=== PATIENT | female | born 1990 | race Caucasian/White ===

== ENCOUNTER 2022-10-16 20:25 | Emergency (ER) | payer OTHER, SELFPAY ==
[2022-10-16 20:47] VITALS: BP 112/75; PULSE 65; RESP 16; TEMP 36.9; O2SAT 100
[2022-10-16 21:07] LABS: Basophils Absolute Auto 0.1 K/mm3 (0.0-0.1); Basophils Percent Auto 0.9 % (0.2-1.2); Eosinophils Absolute Auto 3.7 K/mm3 (0-0.3); Hematocrit 40.4 % (37.0-47.0); Hemoglobin 13.6 g/dL (12.0-15.0); Immature Granulocyte Absolute 0.04 K/mm3 (0.00-0.031); Immature Granulocyte Percent A 0.4 % (0-0.5); Lymphocytes Absolute Auto 2.03 K/mm3 (0.9-3.2); Lymphocytes Percent Auto 19.3 % (18.3-44.2); Mean Corpuscular HGB Conc 33.7 g/dl (32-36); Mean Corpuscular Hemoglobin 31.1 pg (26-34); Mean Corpuscular Volume 92.4 fl (80-100); Monocytes Absolute Auto 0.4 K/mm3 (0.1-0.6); Monocytes Percent Auto 4.2 % (2.6-8.5); Neutrophils Absolute Auto 4.2 K/mm3 (1.3-6.7); Neutrophils Percent Auto 40.2 % (45.5-73.1); Platelet Count Result 234 k/mm3 (150-375); Red Blood Count 4.37 M/mm3 (4.2-5.4); Red Cell Distribution Width 11.4 % (11.5-14.5); White Blood Count 10.5 K/mm3 (4.5-10.0)
[2022-10-16 21:19] LABS: Alanine Aminotransferase 21 U/L (6-35); Albumin Level 4.3 g/dL (3.5-5.1); Alkaline Phosphatase 43 U/L (38-126); Anion Gap 6 mmol/L (8-16); Aspartate Amino Transferase 22 U/L (14-36); Bilirubin,Total 1.2 mg/dL (0.2-1.3); Blood Urea Nitrogen 15 mg/dL (7-17); Carbon Dioxide 29 mmol/L (22-30); Chloride 102 mmol/L (98-107); Estimated CRCL calculation 95 ml/min; Estimated Glomerular Filt Rate > 60; Glucose 83 mg/dL (65-110); Lipase 275 U/L (23-300); Potassium 3.9 mmol/L (3.4-5.0); Sodium 137 mmol/L (137-145)
--- NOTE | 2022-10-16 23:49 | PC.NURSE ---
no answer at triage
== END 2022-10-16 23:59 | disposition left against medical advice (07) ==
PROVIDERS: Emergency Provider General Practice; PCP Family Medicine
DX: R10.9 Unspecified abdominal pain (principal)
CPT/HCPCS: 36415; 80053; 83690; 85025; 99199

== ENCOUNTER 2024-06-09 20:42 | Observation (INO) | payer OTHER, SELFPAY ==
[2024-06-09 20:29] VITALS: BMI 26.2
--- NOTE | 2024-06-09 20:29 | OBADM ---
This patient, Darci Nelson, admitted to the OB room Labor/Delivery/Recovery 109 for observation. Patient/family oriented to hospital policies and general routines including ID bracelet, bed and alarms, visiting hours, pain management, procedures, bathroom and other care routines, personal items, smoking policy, room service/diet, and visiting hours. Patient/Family are encouraged to report perceived risks to care and to ask questions if they do not understand what they are told or what they should do.
[2024-06-09 20:35] LABS: OBXCEM ROM Plus Negative (Negative)
== END 2024-06-09 20:45 | disposition home or self-care (01) ==
PROVIDERS: Admitting Provider Obstetrics & Gynecology; PCP Family Medicine; Visit Provider Obstetrics & Gynecology
DX: O47.1 False labor at or after 37 completed weeks of gestation (principal); Z3A.37 37 weeks gestation of pregnancy
CPT/HCPCS: 84112; G0378; G0379

== ENCOUNTER 2024-06-10 08:07 | Observation (INO) | payer OTHER, SELFPAY ==
[2024-06-10 08:30] VITALS: RESP 16; TEMP 37; BMI 26.0
--- NOTE | 2024-06-10 08:30 | OBADM ---
This patient, Darci Nelson, admitted to the OB room 106 for observation. Patient/family oriented to hospital policies and general routines including ID bracelet, bed and alarms, visiting hours, pain management, procedures, bathroom and other care routines, personal items, smoking policy, room service/diet, and visiting hours. Patient/Family are encouraged to report perceived risks to care and to ask questions if they do not understand what they are told or what they should do.
--- NOTE | 2024-06-10 10:59 | PM.OBTRLD ---
OB - Triage/Final Diagnosis Visit Information Date of evaluation: 06/10/24 Reason for evaluation: threatened labor Comments/Additional reasons for admission: I have assessed the risk for this patient, Darci Nelson, and determined that she would benefit from observation care.
== END 2024-06-10 10:41 | disposition home or self-care (01) ==
PROVIDERS: Admitting Provider Obstetrics & Gynecology; Visit Provider Obstetrics & Gynecology
DX: O47.9 False labor, unspecified (principal); Z3A.00 Weeks of gestation of pregnancy not specified
CPT/HCPCS: G0378; G0379

== ENCOUNTER 2024-06-13 01:35 | Observation (INO) | payer OTHER, SELFPAY ==
[2024-06-13] VITALS (8 sets, daily range): BP systolic 99–120; BP diastolic 63–70; PULSE 72–86
--- NOTE | 2024-06-13 02:18 | OBADM ---
This patient, Darci Nelson, admitted to the OB room Labor/Delivery/Recovery 104 for observation. Patient/family oriented to hospital policies and general routines including ID bracelet, bed and alarms, visiting hours, pain management, procedures, bathroom and other care routines, personal items, smoking policy, room service/diet, and visiting hours. Patient/Family are encouraged to report perceived risks to care and to ask questions if they do not understand what they are told or what they should do.
[2024-06-13 02:25] LABS: Add Urine Microscopic? NO; Appearance Urine Clear (Clear); Bilirubin Urine Negative (Negative); Blood Urine Negative (Negative); Color Urine Yellow (Yellow); Glucose Urine UA Negative (Negative); Ketones Urine Negative (Negative); Leukocyte Esterase Ur Negative LEU/UL (Negative); Nitrate Urine Negative (Negative); Protein Urine Negative (Negative); Specific Grav Ur 1.009 (1.001-1.035); Urobilinogen Urine 0.2 mg/dL (<2.0); pH Urine 5.5 (5.0-9.0)
--- NOTE | 2024-06-13 04:24 | PC.NURSE ---
Pt discharged home undelivered in stable condition per order from Dr. Su. Discharge instructions provided and reviewed. All questions and concerns answered. PT ambulated out of department with all belongings.
--- NOTE | 2024-07-16 11:04 | PM.OBTRLD ---
OB - Triage/Final Diagnosis Visit Information Comments/Additional reasons for admission: I have assessed the risk for this patient, Darci Nelson, and determined that she would benefit from observation care. Evaluation Laboratory results: Laboratory Tests 06/13/24 02:09 Urine Color Yellow Urine Appearance Clear Urine pH 5.5 Ur Specific [place] 1.009 Urine Protein Negative Urine Glucose (UA) Negative Urine Ketones Negative Ur Blood (Man) Negative Urine Nitrate Negative Urine Bilirubin Negative Urine Urobilinogen 0.2 Leukocyte Esterase Rfl Negative Final Diagnosis (1) False labor: Code(s): O47.9 - False labor, unspecified Status: Acute
== END 2024-06-13 04:24 | disposition home or self-care (01) ==
PROVIDERS: Admitting Provider Obstetrics & Gynecology; Visit Provider Obstetrics & Gynecology
DX: O47.1 False labor at or after 37 completed weeks of gestation (principal); Z3A.38 38 weeks gestation of pregnancy
CPT/HCPCS: 81003; G0378; G0379

== ENCOUNTER 2024-06-17 04:58 | Inpatient (IN) | payer OTHER, SELFPAY ==
[2024-06-17] VITALS (220 sets, daily range): BP systolic 77–114; BP diastolic 39–81; PULSE 53–108; RESP 16–18; TEMP 36.1–37.2; O2SAT 78–100; BMI 26.9
--- NOTE | 2024-06-17 05:31 | LDADM ---
This patient, Darci Nelson, was admitted to Labor/Delivery/Recovery 103 on 06/17/24 at 04:58. Plans for labor, pain management and were discussed with patient. Patient/family oriented to hospital policies and general routines including ID bracelet, bed and alarms, visiting hours, pain management, procedures, bathroom and other care routines, personal items, smoking policy, room service/diet and guest tray routines, infant security routines, and visiting hours. Patient/Family are encouraged to report perceived risks to care and to ask questions if they do not understand what they are told or what they should do. See OBIX for further documentation.
[2024-06-17 05:45] LABS: Basophils Absolute Auto 0.2 K/mm3 (0.0-0.1); Basophils Percent Auto 1.2 % (0.2-1.2); Eosinophils Absolute Auto 0.1 K/mm3 (0-0.3); Eosinophils Percent Auto 0.6 % (0-4.4); Hematocrit 34.4 % (37.0-47.0); Hemoglobin 11.2 g/dL (12.0-15.0); Immature Granulocyte Absolute 1.49 K/mm3 (0.00-0.031); Immature Granulocyte Percent A 9.2 % (0-0.5); Lymphocytes Percent Auto 10.5 % (18.3-44.2); Mean Corpuscular HGB Conc 32.6 g/dl (32-36); Mean Corpuscular Hemoglobin 29.2 pg (26-34); Mean Corpuscular Volume 89.6 fl (80-100); Mean Platelet Volume 10.1 fl (7.4-10.4); Monocytes Absolute Auto 1.3 K/mm3 (0.1-0.6); Monocytes Percent Auto 8.2 % (2.6-8.5); Neutrophils Absolute Auto 11.3 K/mm3 (1.3-6.7); Neutrophils Percent Auto 70.3 % (45.5-73.1); Platelet Count Result 200 k/mm3 (150-375); Red Blood Count 3.84 M/mm3 (4.2-5.4); Red Cell Distribution Width 13.4 % (11.5-14.5); White Blood Count 16.1 K/mm3 (4.5-10.0)
[2024-06-17] MEDS: OXYTOCIN 30 UNITS/NS 500 ML 30 UNITS/500 ML BAG IV CONT (06:06)
[2024-06-17] MEDS: LACTATED RINGERS 1,000 ML 125 ML IV CONT ×3 (06:06→16:39)
[2024-06-17 06:37] LABS: HIV 1/2 Ab P24 Ag Result Negative (Negative)
--- NOTE | 2024-06-17 06:54 | PM.IMHP ---
H&P: HPI History of Present Illness Date/Time: 06/17/24 06:54 Chief Complaint: Induction at term Narrative: this is a 34-year-old 2 para 1 whose last menstrual period was 09/24/2023, EDC is 07/04/2024, was confirmed by 11 week ultrasound presents at 39 weeks gestation for induction of labor. has been uncomplicated. 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 She is negative for group B strep Review of Systems Review of Systems: All systems reviewed & are unremarkable except as noted in HPI and below PMFSH Family History Family History Other No pertinent family history Social History Social History Smoking status: Never smoker Second hand tobacco smoke exposure: No Alcohol intake: current Substance use: never Do You Feel Safe in your Home?: Yes Lack of Transportation: No Lack of Food: Never True Current Housing: I Have Housing Concerned About Future Housing: No Difficulty Paying Gas/Electric Bills: No Difficulty Paying for Meds: No Currently Unemployed: No Education: Trade/Vocational Certificate Difficulty w/ Childcare or Family Care: No Spiritual care concerns: No Meds Home Medications and Allergies Home Medications ?Medication ?Instructions ?Recorded ?Confirmed ?Type bupropion HCl 150 mg 24 hr tablet, 150 mg PO DAILY 06/10/24 06/17/24 History extended release omeprazole 40 mg capsule,delayed 40 mg PO DAILY 06/10/24 06/17/24 History release vit no.95-ferrous 1 tablet PO DAILY 06/10/24 06/17/24 History fumarate 28 mg-folic acid 800 mcg tablet () clindamycin 1 %-benzoyl peroxide 5 topical 06/17/24 History % topical gel with pump ondansetron HCl 4 mg tablet mg 06/17/24 History Allergies Allergy/AdvReac Type Severity Reaction Status Date / Time No Known Allergies Allergy Verified 06/17/24 05:47 Vital Signs Vital Signs - 24 hr 06/17/24 05:13 06/17/24 05:31 06/17/24 06:30 Temperature 97 F L Pulse Rate 77 69 Respiratory Rate Blood Pressure 103/64 107/63 Oxygen Delivery Room Air 06/17/24 06:48 Temperature 99 F Pulse Rate Respiratory Rate 16 Blood Pressure Oxygen Delivery Exam Const: General: cooperative, healthy appearing and comfortable Nutritional Appearance: average body habitus Orientation/consciousness: oriented to person, oriented to place and oriented to time Resp: Effort & Inspection: normal respiratory effort Cardio: Rate: regular rate Rhythm: regular rhythm Heart sounds: S1 normal heart sound present and S2 normal heart sound present GI: Inspection: normal to inspection ( gravid soft uterus) : Speculum Exam - Cervix: normal appearance of the cervix ( cervix 2/75/1. AROM clear. FHT is reassuring) H&P: Results Labs Labs: Short CBC 06/17/24 Range/Units 05:35 WBC 16.1 H (4.5-10.0) K/mm3 Hgb 11.2 L (12.0-15.0) g/dL Hct 34.4 L (37.0-47.0) % Plt Count 200 (150-375) k/mm3 Assessment and Plan Assessment and plan (1) Term : Code(s): Z34.90 - Encounter for supervision of normal , unspecified, unspecified trimester Status: Acute Plan proceed with medical elt induction of labor. Spontaneous vaginal delivery is expected. She is an epidural candidat
[2024-06-17 07:12] LABS: Rapid Plasma Reagin Non-Reactive (NonReactive)
--- NOTE | 2024-06-17 16:17 | PM.OBPNLAB ---
Pain Control Date/time seen: 06/17/24 16:17 Pain control: tolerating well and epidural Pelvic Exam Dilation (cm): 4
--- NOTE | 2024-06-17 19:26 | PM.OBPNLAB ---
Pain Control Date/time seen: 06/17/24 19:26 Pain control: tolerating well and epidural Pelvic Exam Dilation (cm): 4 Effacement (%): 90 station: -1 Amniotic membrane status: Leaking
[2024-06-18] VITALS (19 sets, daily range): BP systolic 86–123; BP diastolic 42–105; PULSE 69–111; RESP 14–16; TEMP 36.6–36.9; O2SAT 70–100
--- NOTE | 2024-06-18 00:50 | PM.OBPRVD ---
OB - Vaginal Delivery Note Procedure Delivery date: 06/18/24 Events: Elective Induction of Labor Induction method: AROM Delivery augmentation: Pitocin Delivery monitor: External FHT, External Uterine and Internal Uterine Route of delivery: Episiotomy description: None Laceration Description: None Quantitative Blood Loss (ml): 62 Anesthesia type: Epidural Disposition: Floor Complications: No immediate complications Narrative: Patient was admitted for induction of labor on 06/17/2024 she underwent spontaneous vaginal delivery on 06/18/2024 at 12:37 a.m.. When she was complete she pushed delivered head spontaneously in the SACHIN position nuchal cord checked noted to be loose x1 relieved around the occiput anterior posterior shoulder delivered spontaneously. Cord clamped x2 and cut. given Apgars of 7 [id number]. Cord blood was drawn. Placenta delivered intact spontaneously. Twenty of Pitocin placed in the IV to help firm the uterus. After spectral sidewalls no lacerations. She was seen. Blood loss estimated 62cc. All sponge, needle, instrument counts were correct. There were no immediate complications [place] Baby Date of : 06/18/24 Time of : 00:37 Gestational Age by Date: 39 Infant gender: Male Weight (pounds): 8 Weight (ounces): 7 presentation: vertex position: Right Occiput Anterior Placenta delivery description: Spontaneous Cord Vessel Description: 3 Vessels, Nuchal Cord, Loose and Reduced score one minute: 7
--- NOTE | 2024-06-18 00:53 | PM.DS ---
DS: Admitting Diagnosis Discharge Date 06/19/2020 Admitting Diagnosis term DS: Discharge Diagnosis Discharge Diagnosis (1) Term : Code(s): Z34.90 - Encounter for supervision of normal , unspecified, unspecified trimester Status: Acute DS: Summary Hospital Course Reason for hospitalization: patient was admitted for induction of labor in the early a.m. of 06/17/2024 and underwent spontaneous vaginal delivery of the early a.m. of 06/18/2024 Hospital Course: patient's hospital course unremarkable. She remained afebrile. She was up, voiding without difficulty, eating regular diet, ambulating, and generally without complaints. Time Spent with Patient Time attestation: Total time spent providing and/or coordinating discharge services: Exam Const: General: cooperative, healthy appearing and comfortable Nutritional Appearance: average body habitus Orientation/consciousness: oriented to person, oriented to place and oriented to time Resp: Effort & Inspection: normal respiratory effort Cardio: Rate: regular rate Rhythm: regular rhythm Heart sounds: S1 normal heart sound present and S2 normal heart sound present GI: Inspection: normal to inspection ( Fundus firm below the umbilicus) DS: Data Data Completed and Pending Labs on day of discharge: Labs from last 24 hours 06/17/24 05:35 WBC 16.1 H RBC 3.84 L Hgb 11.2 L Hct 34.4 L MCV 89.6 MCH 29.2 MCHC 32.6 RDW 13.4 Plt Count 200 MPV 10.1 Immature Gran % (Auto) 9.2 H Neut % (Auto) 70.3 Lymph % (Auto) 10.5 L Quay % (Auto) 8.2 Eos % (Auto) 0.6 Baso % (Auto) 1.2 Lymph # (Auto) 1.70 Quay # (Auto) 1.3 H Eos # (Auto) 0.1 Baso # (Auto) 0.2 H Abs Immat Gran (auto) 1.49 H Absolute Neuts (auto) 11.3 H Absolute Nucleated RBC 0.000 Nucleated RBC % 0.0 RPR Non-reactive HIV 1&2 Ab/P24 Ag 4thGn Negative Blood Type O Positive Antibody Screen Positive Antibody Identification Anti-E Antigen Identification E Antigen - NEGATIVE FAITH, IgG Interpret Neg FAITH, Poly Interpret TNP FAITH, Complement Interp Negative Enhanced Crossmatch See Detail Discharge Plan Discharge Attending physician on discharge: Andrew Gutierrezarging Clinician: Andrew Gutierrez Patient Disposition: Home, Self-Care Activity: may shower, no straining and pelvic rest Diet: heart healthy Wound Care Instructions: follow printed instructions Patient Instructions: Antibiotic Form Patient Language: Upper Sorbian Stand Alone Forms: General Discharge Information Follow-up/Referrals: Andrew Gutierrez MD [Physician] - Discharge Medications: Continued ondansetron HCl 4 mg tablet clindamycin-benzoyl peroxide 1-5 % gel with pump TOPICAL bupropion HCl 150 mg tablet extended release 24 hr 150 mg PO DAILY PNV cmb#95-ferrous fumarate-FA [] 28 mg iron- 800 mcg Tablet 1 tablet PO DAILY omeprazole 40 mg Capsule,Delayed Release(Dr/Ec) 40 mg PO DAILY Date of admission: 06/17/24 04:58 Primary Care Provider: UNKNOWN,DOCTOR Admitting Provider: Andrew Gutierrez Attending physician on admission: Andrew Gutierrez Condition: Stable
[2024-06-18] MEDS: OXYTOCIN 30 UNITS/NS 500 ML 30 UNITS/500 ML BAG 125 UNITS IV CONT (00:58)
[2024-06-18] MEDS: ACETAMINOPHEN 325 MG TABLET 650 MG PO ×3 (02:06→17:40)
[2024-06-18] MEDS: WITCH HAZEL 40 PADS 1 PAD TOPICAL (02:54)
[2024-06-18] MEDS: BENZOCAINE 20% AER SPR (*SP) 56 GM CAN 1 SPRAY TOPICAL (02:54)
--- NOTE | 2024-06-18 03:00 | OBPPTRN ---
Patient transferred to post room #291 via wheelchair. Support person present. Oriented to unit, room, information board, rooming in, admission packet and security measures. Patient verbalizes understanding.
[2024-06-18] MEDS: DOCUSATE SODIUM 100 MG CAPSULE PO ×2 (07:35→17:40)
[2024-06-18] MEDS: IBUPROFEN 600 MG TABLET PO ×3 (07:36→20:14)
[2024-06-18] MEDS: MULTIVIT/MIN/PREN/FOL AC/IRON TABLET 1 TAB PO (07:36)
[2024-06-18] MEDS: buPROPion HCL XL (24 HR) 150 MG TABCR PO (07:36)
--- NOTE | 2024-06-18 09:22 | PC.NURSE ---
Introductions were made, then consulted with patient to assess needs related to . Mother led the conversation with her?plans to feed?her and the?experience so far. Mother would like to exclusively breastfeed, she was given a nipple shield through the night and was used due to baby not being able to maintain latch. Mother had used the shield x4 so RN will set mother up with a breast pump, mother prefers to use the hospital pump. Instructions given on cleaning, care, usage, that there should be no pain, pumping schedule for milk production, collection, and storage of human milk. Patient was assessed for correct placement, flange size (both nipples measured 20mm and she needs the size 27 flange, as the size 24 was rubbing her nipples), to pump for comfort and nipple stretching/stimulation for adequate milk production every 3 hours (8 times in 24 hours) 1-2 times at night. Parents are encouraged to record the pumping schedule on the feeding sheet.?Mother voiced understanding of the education shared along with mom/baby guide and the pump measurement, flange fit handout for additional resource information. RN encouraged understanding of the benefits of skin to skin (demonstrating unwrapping infant and placing upright on her chest), stimulating with massage touch, changing positions to encourage wakefulness, how to watch for early feeding cues, responsive feeding, feeding on demand (aiming for 8-12 times in 24 hours, about every 2-3 hours), milk production, building/maintaining a milk supply, duration of feeding, signs of adequate intake/output and how to record on the feeding sheet. Mother works well with her with encouragement and education. Reviewed positioning and ear, shoulder, hip alignment, supporting the breast to facilitate a deep latch, asymmetrical latch (off-center), leading with the chin with a big, open, wide gape and body close to mother. had latched optimally to the [right] breast in [cradle] position per mother. Education given to the mother of how to visualize the suckling (with good rocking jaw motion), swallows (dropping of the lower jaw) and how to listen for drinking at the breast (the ka sound). was [able] to maintain latch using the nipple shield without pain to mother protecting the nipple with optimal positioning and latching. Reviewed comfort measures of healing with a warm, wet washcloth to rinse breast, then leave open to air-dry, good handwashing when or touching the breast/nipples to prevent infection. Mother voiced understanding of skin to skin, stimulating with massage touch, responsive feedings, hand expressed colostrum, talking to infant to encourage if it has been 2 -2.5 hours since the start of the last , to call if infant does not latch, or if there is discomfort with . Resources used for education were facilitated with the [visual educational handouts/ tool/mom and baby guide/ folder], Inpatient/outpatient resources provided with business card, feeding sheet, name written on the communication board, and the mom/baby guide. Parents voiced understanding of information, demonstrated learning and will call if there is a request for assistance. RN also reviewed good handwashing, cleaning the nipple shield and the appropriate way to apply and use as a tool. Discussed with mom the nipple shield precautions, possible complications associated with the risks and benefits. Reviewed practicing with a nipple shield, then without and how to protect the milk supply and production. Mom and baby guide referred to as a resource for outpatient services, community resources and when to call a provider. Mom voiced understanding of the importance of hand expression, nipple stimulation and was ok with the initiating of the pumping schedule since the infant had continued to nurse with the shield. Reported to the Primary RN.
--- NOTE | 2024-06-18 16:08 | PC.NURSE ---
1300. Mom independently latching with nipple shield. Mom reports she is using shield bc infant has latch difficulties. Mom called to have show her how to listen for swallows . Infant stopped suckling when entered the room and would not continue. Mom encouraged to call again next time was feeding to try again. Mom verbalized understanding.
--- NOTE | 2024-06-18 18:03 | PC.NURSE ---
1750. Nurse called to assist mom with feeding at this time. Mom reports is sleepy and not wanting to latch and eat. Infant was circumcised at 1600 and is sleeping in moms arms. We undressed and placed him in s2s. Infant was properly positioned in cross cradle and multiple attempts made to latch. Infant sleepy, reluctant to latch. We discussed having mom pump to collect some EBM to feed to infant. Mom requests formula at this time to feed infant and will pump after is fed. Mom requested enfamil. Assisted mom with bottle feeding infant, infant was sleepy and reluctant to suck on the bottle. Infants last feeding was 1300 for 5 min, with an attempt at 1600 for 40 min. was able to take 5 ml from the nurse at this time. Mom fed infant another 10ml, and reports she will pump for 15 min. Reported to primary RN.
[2024-06-19] MEDS: IBUPROFEN 600 MG TABLET PO (01:45)
[2024-06-19] MEDS: ACETAMINOPHEN 325 MG TABLET 650 MG PO ×2 (01:45→08:19)
[2024-06-19 04:41] LABS: Hematocrit 31.6 % (37.0-47.0); Hemoglobin 9.9 g/dL (12.0-15.0)
--- NOTE | 2024-06-19 05:00 | PC.NURSE ---
0400-This RN requested assistance from security to enter pts room with FOB, as reported by surgical instrument technician he was verbally aggressive with her as she was attempting blood draw on pt. FOB standing behind her, stating that we are in the room every 45 minutes and that he is sick of the interruptions which this RN had addressed with FOB and pt at 0200, apologizing for the two hour checks, explaining the rationale behind them. This RN explained to FOB and pt that FOB would not be allowed to be aggressive with staff and that he needing to go out into the arenas with security while this RN performed lab draw. FOB stated you all are ridiculous! and proceeded to go into hallway with security. Pt began crying, stating that she was sorry and the he is really a nice rufina. I did ask pt if she felt safe with FOB and she stated that she did. FOB then returned to room without incident.
--- NOTE | 2024-06-19 07:51 | P.PNOB_ITS ---
OB - PN: Subj Subjective Date/time seen: 06/19/24 07:51 Patient comments: no complaints, pain well controlled and tolerating diet OB - PN: Obj Data Labs 06/19/24 04:30 Labs: Laboratory Results - last 24 hr 06/19/24 04:30 Hgb 9.9 L Hct 31.6 L OB - PN A/P Assessment and Plan (1) Term : Code(s): Z34.90 - Encounter for supervision of normal , unspecified, unspecified trimester Status: Acute Plan Home today follow-up 6 weeks Time Spent With Patient Time: Total time spent is greater than 50% in coordination of care (as documented) at patient's floor/unit and/or counseling patient: Review of Systems 2 Review of Systems: All systems reviewed & are unremarkable except as noted in HPI and below Exam 2 Const: General: cooperative, healthy appearing and comfortable Nutritional Appearance: average body habitus Orientation/consciousness: oriented to person, oriented to place and oriented to time Resp: Effort & Inspection: normal respiratory effort Cardio: Rate: regular rate Rhythm: regular rhythm Heart sounds: S1 normal heart sound present and S2 normal heart sound present GI: Inspection: normal to inspection
[2024-06-19 08:00] VITALS: BP 100/65; PULSE 70; RESP 16; TEMP 36.6; O2SAT 99
[2024-06-19] MEDS: MULTIVIT/MIN/PREN/FOL AC/IRON TABLET 1 TAB PO (08:19)
[2024-06-19] MEDS: DOCUSATE SODIUM 100 MG CAPSULE PO (08:19)
[2024-06-19] MEDS: POLYSACCHARIDE IRON COMPLEX 150 MG CAPSULE PO (08:19)
[2024-06-19] MEDS: buPROPion HCL XL (24 HR) 150 MG TABCR PO (08:19)
--- NOTE | 2024-06-19 08:20 | PC.NURSE ---
Per the primary RN, mom chooses to exclusively formula feed. She does not wish to pump or give breastmilk at this time.
[2024-06-19] MEDS: INFLUENZA TRIVALENT VACCINE 45 MCG/0.5 ML SYRINGE IM (08:41)
== END 2024-06-19 09:20 | disposition home or self-care (01) | DRG 807 ==
LOC: ANHLDR 06-18 00:57 → ANHOB2 06-18 04:06
PROVIDERS: Admitting Provider Obstetrics & Gynecology; Visit Provider Obstetrics & Gynecology
DX: O69.81X0 Labor and delivery complicated by cord around neck, without compression, not applicable or unspecified (principal); Z37.0 Single live birth; Z3A.39 39 weeks gestation of pregnancy; Z23 Encounter for immunization
CPT/HCPCS: 36415; 85014; 85018; 85025; 86592; 86703; 86850; 86880; 86900; 86901; 86902; 86922; 90471; 90656; A9270; G0008; G0432; J2590; J2795; J7120

== ENCOUNTER 2024-10-16 14:49 | Emergency (ER) | payer OTHER, SELFPAY ==
--- OUTSIDE RECORDS SUMMARY | 2024-10-16 14:52 | XMS_ITS | Clinical Summary ---
Author Organization [facility] Address [facility] [place] [address] Care Team Providers Care Labor Mediator Name Role Phone Unavailable Primary Care Provider Unavailabl e Encounters Date Type Department Care Team Description 08/30/2024 7:29 AM INSTITUTIONAL RESEARCH COORDINATOR - 08/30/2024 11:59 PM INSTITUTIONAL RESEARCH COORDINATOR Hospital Encounter [facility] [place] [address] [place] [address] Candice Watson MD Discharge Disposition: Home or Self Care (Routine Discharge) from Last 3 Months Social History Tobacco Use Types Packs/Day Years Used Date Smoking Tobacco: Never Assessed Comments Unknown Sex and Gender Information Value Date Recorded Sex Assigned at Not on file Legal Sex Female 7:28 AM INSTITUTIONAL RESEARCH COORDINATOR Gender Identity Not on file Sexual Orientation Not on file Plan of Treatment Health Maintenance Due Date Last Done Comments Cervical Cancer Screening Pa p Smear (Age 30 to 64) Every 3 Years 1989 Annual Physical 1992 Hepatitis C 2007 DTaP, Tdap and Td Vaccines ( 1 - Tdap) 2008 Hepatitis B Vaccines (1 of 3 - 19+ 3-dose series) 2008 Cervical Cancer Screening Pa p with HPV Testing (Age 30 to 64) Every 5 Years 2019 Cervical Cancer Screening with HPV 2019 COVID-19 Vaccine ( - 2023-2 5 season) 2024 HPV Vaccines Aged Out No longer eligi ble based on patient's age to complete this topic Meningococcal B Vaccine Aged Out No l onger eligible based on patient's age to complete this topic Meningococcal Vaccine Aged Out No nilo jordan eligible based on patient's age to complete this topic Pneumococcal Vaccine: Pediat rics (0 to 5 Years) and At-Risk Patients (6 to 64 Years) Aged Out No longer eligible b ased on patient's age to complete this topic RSV Immunizations Under 20 Months Aged Out No longer eligible based on patient's age to complete this topic Procedures Procedure Name Priority Date/Time Associated Diagnosis Comments PATHOLOGY Routine 08/30/2024 12:00 AM INSTITUTIONAL RESEARCH COORDINATOR from Last 3 Months Results * Pathology (08/30/2024 12:00 AM INSTITUTIONAL RESEARCH COORDINATOR) PATHOLOGY [facility] Department of Laboratory Medicine [address] [place] [address] , extension [phone] Pathology Report Surgical Pathology Report Name: DARCI DEL REAL Specimen #: [id number] Age: 10 1990 (Age: 34) Location: [facility] Sex: F Procedure Date: 08/30/2024 Hospital #: [id number] Date Received: 08/31/2024 Date Reported: 09/01/2024 Provider: CANDICE WATSON Source: Soft tissue, left lower back Clinical History: Left lower back fatty mass. FINAL DIAGNOSIS: Soft tissue, left lower back mass, excision: -Mature fibroadipose tissue, compatible with lipoma. Gross Description: Received in formalin, labeled with a patient label and as left lower back mass are multiple disrupted pieces of soft yellow tissue, 8.5 x 7.5 x 1.0 cm in aggregate. Sections reveal pale yellow cut surfaces. Ssn/Ssbn Assistant Navigator tissue is submitted in cassette 1. Gross examination (when applicable), interpretation, and sign out were performed at [facility], [address] [place] [address]. Electronically Signed Out ADEBAYO DUMONT MD [facility] 08/30/2024 08/31/2024 11: 59 AM INSTITUTIONAL RESEARCH COORDINATOR Comment:Soft tissue, left lo wer back us Candice Watson MD PATHOLOGY/CYTOLOGY OR DERABLES Final Result [facility] [address] [place] [id number], [id number] from Last 3 Months
--- OUTSIDE RECORDS SUMMARY | 2024-10-16 14:52 | XMS_ITS | Data Portability ---
Author Organization [facility] [employer], Main Office Address [address] [place] [address] Assessment Encounter Date Assessment Date Assessment LastModified by Organization Details LastModified Time 08/26/2024 08/26/2024 Right lower back mass. Most likely benign fatty mass. Patient would like to have removed. Will schedule for excision under anesthesia. Risks and benefits were discussed risks include bleeding, infection and numbness [email or web address] Not available 08/26/2024 12:39:42 Plan of Treatment Reminders Order Date Submit Date Provider Last Modified By Organization Details Last Modified Time Details Appointments Follow Up 15 2024 11:15A NEEMA Daniels Not available Not available Not available Lab urinalysi s, dipstick 2022 023 [facility] [address], [place], [address], 10/24/2022 11:52:00 Referral general surgeon referral - lipoma left of lumbar spine . Please eval and treat. Please call patient to schedule an appointme nt. Thank you 2024 025 ANA Mercado MD, [address] [facility], [address], [place], [address], 10/16/2024 04:07:32 gynecolog ist referral 2022 023 [email or web address] Keysha Lindquist MD, [address] [facility], [address], [place], [address], 09/19/2023 09:26:32 Procedures None recorded. Surgeries None recorded. Imaging US, pelvis, transabdo atif + transvagi nal - *Please call patient to schedule* 2022 023 [email or web address] [id number] [facility] ([facility] [address] [place], [address], 11/25/2022 12:12:37 Medication Orders bupropion HCl XL 300 mg 24 hr tablet, extended release 2024 025 [id number], [address] [place], [place], [id number], 08/17/2024 12:14:11 dextroamp hetamine- amphetami ne 15 mg tablet 2022 023 [facility][id number], [address], [place], [id number], 06/16/2023 16:15:39 Patient TargetsNo targets recorded. Patient Instructions Encounter Date Encounter Id Patient Instructions Last Modified By Organization Details Last Modified Time 04/06/2024 [id number] I offered to prescribe vitamins , sh is fine with the otc ones for now [email or web address] Not available 04/06/2024 10:36:03 Reason for Referral [employer] Referral for Sc reening for malignant neoplasm of cervix Referring Physician: [facility], Encounter Date: 06/16/2023 General Surgeon Referral for Lipoma lipoma left of lumbar spine . Please eval and treat. Please call patient to schedule an appointment. Thank you Referring Physician: [facility], Encounter Date: 08/17/2024 Results Created Date Observation Date Name Description Value Unit Range Abnormal Flag Note LastModifiedBy Organization Detail LastModifiedTime 10/25/19 23 10/24/2022 urina lysis , dipst ick Leukocytes (reference range: negative lexi/ l) Negati ve Not Available s_[address], [place], [address], 10/24/2022 11:49:22 10/25/19 23 10/24/2022 urina lysis , dipst ick Nitrite (reference rage: negative mg/dl) negati ve Not Available [address], [place], [address], 10/24/2022 11:49:22 10/25/19 23 10/24/2022 urina lysis , dipst ick Urobilinogen (reference range: 0.2-1 mg/dl) 0.2 Not Available [address], [place], [address], 10/24/2022 11:49:22 10/25/19 23 10/24/2022 urina lysis , dipst ick Protein (reference range: negative mg/dl) Negati ve Not Available [address], [place], [address], 10/24/2022 11:49:22 10/25/19 23 10/24/2022 urina lysis , dipst ick pH (reference range: 5-7) 7.0 Not Available [address], [place], [address], 10/24/2022 11:49:22 10/25/19 23 10/24/2022 urina lysis , dipst ick Blood (reference range: negative Timo/ l) Negati ve Not Available [address], [place], [address], 10/24/2022 11:49:22 10/25/19 23 10/24/2022 urina lysis , dipst ick Specific [place] (reference range: 1.005-1.030) 1.015 Not Available [address], [place], [address], 10/24/2022 11:49:22 10/25/19 23 10/24/2022 urina lysis , dipst ick Ketone (reference range: negative mg/dl) Negati ve Not Available [address], [place], [address], 10/24/2022 11:49:22 10/25/19 23 10/24/2022 urina lysis , dipst ick Bilirubin (reference range: negative mg/dl) Negati ve Not Available [address], [place], [address], 10/24/2022 11:49:22 10/25/19 23 10/24/2022 urina lysis , dipst ick Glucose (reference range: negative mg/dl) Negati ve Not Available [address], [place], [address], 10/24/2022 11:49:22 10/25/19 23 10/24/2022 urina lysis , dipst ick Appearance Clear Not Available [address], [place], [address], 10/24/2022 11:49:22 10/25/19 23 10/24/2022 urina lysis , dipst ick Color Yellow Not Available [address], [place], [address], 10/24/2022 11:49:22 08/30/19 25 08/30/2024 URINE HCG QUAL/ POINT OF CARE point of care urine preg negati ve negati ve Not Available [facility] (Lab) [address] [place], [address], 08/30/2024 07:09:39 Result Notes None recorded. Problems Name Problem SNOMED Code Status Onset Date Resolution Date Notes Provider Name and Address Organization Details Recorded Time Acne 89972704 Active Not Available [facility] 3 08:48:32 Undifferenti ated attention deficit disorder 40953790 Active Not Available [facility] 3 08:48:32 Tendinitis of wrist 755979714 Active Not Available [facility] 3 08:48:32 Adult attention deficit hyperactivit y disorder 185517648 Active Not Available [facility] 3 08:48:32 Urinary tract infectious disease 02106872 Active Not Available [facility] 3 08:48:32 Attention deficit hyperactivit y disorder, predominantl y inattentive type 94145963 Active 2022 Mro Christian MD [address], [address], [place], [address] , [employer] [facility] [employer] 3 12:00:15 Pain in pelvis 60389089 Active 2022 Mor Christian MD [address], [address], [place], [address] , [place] [facility] [employer] [facility] 3 11:48:58 Viral enteritis of intestine 43653678 Active 2022 Mor Christian MD [address], [address], [place], [address] , [employer] [facility] 3 13:21:44 Mixed anxiety and depressive disorder 012550914 Active 2022 Mor Christian MD [address], [address], [place], [address] , [employer] [facility] 3 08:46:03 Bronchitis 53133129 Active 2022 Mor Christian MD [address], [address], [place], [address] , [employer] [facility] 3 16:27:24 Screening for malignant neoplasm of cervix Active 2022 NEEMA Yanes [address], [address], [place], [address] , [email or web address] [facility] [employer] 3 16:16:16 Adult health examination Active 2023 NEEMA Yanes [address], [address], [place], [address] , [facility] [employer] [facility] [employer] 4 10:34:13 Dysuria 15841611 Active 2023 NEEMA Yanes [address], [address], [place], [address] , [email or web address] [facility] [employer] [facility] 4 16:16:48 Lipoma 75429513 Active 2024 left of lumbar spine NEEMA Yanes [address], [address], [place], [address] , [email or web address] [facility] [employer] [facility] 5 12:18:33 Lipoma of back 907925965 Active 2024 Romulo fletcher MD [address], [address], [place], [address] , [email or web address] [facility] [employer] 5 14:39:28 Problem Notes None recorded. Medical Equipment None Reported. Allergies No known drug allergies Medications Name Sig Start Date Stop Date Status Note LastModified by Organization Details LastModified Time cyclobenzap rine 10 mg tablet 08/11 completed Not Available Not Available Not Available amoxicillin 500 mg capsule TK ONE C PO TID TAT 09/05 completed Not Available Not Available Not Available prednisone 10 mg tablet 4 tabs daily x 3 days 3 tabs daily x 3 days 2 tabs daily x 3 days 1 tab daily x 3 days then stop. active Not Available Not Available No t Available azithromyci n 250 mg tablet TAKE 2 TABLETS BY MOUTH FOR 1 DAY THEN TAKE 1 TABLET BY MOUTH DAILY FOR 4 DAYS 04/06 completed Not Available Not Available Not Available fluconazole 150 mg tablet TK 1 T PO FOR 1 DAY active Not Available Not Available No t Available hydrocodone 5 mg-acetamin ophen 325 mg tablet TK 1 OR 2 TS PO Q 6 H PRN P 09/05 completed Not Available Not Available Not Available ondansetron HCl 4 mg tablet TAKE 1 TABLET BY MOUTH EVERY 6 HOURS NEEDED FOR NAUSEA active Not Available Not Available No t Available spironolact one 100 mg tablet TAKE 1 TABLET BY MOUTH EVERY DAY FOR ACNE active on hold for now Not Available Not Available Not Available penicillin V potassium 500 mg tablet active Not Available Not Available Not Available acetaminoph en 300 mg-codeine 30 mg tablet TK 1 T PO Q 4-6 H PRN P 04/26 completed Not Available Not Available Not Available ciprofloxac in 250 mg tablet TK 1 T PO BID FOR 3 DAYS active Not Available Not Available No t Available levofloxaci n 250 mg tablet Take 1 tablet every day by oral route for 7 days. active Not Available Not Available No t Available ciprofloxac in 500 mg tablet Take 1 tablet every 12 hours by oral route for 7 days. active Not Available Not Available No t Available sulfamethox azole 800 mg-trimetho prim 160 mg tablet TAKE ONE TABLET BY MOUTH TWICE DAILY FOR 7 DAYS 07/15 completed Not Available Not Available Not Available butalbital- acetaminoph en-caffeine 50 mg-325 mg-40 mg tablet Take 1 tablet every 4 hours by oral route. active Not Available Not Available No t Available oxycodone-a cetaminophe n 5 mg-325 mg tablet TAKE 1 TABLET BY MOUTH EVERY 6 HOURS NEEDED FOR PAIN active Not Available Not Available No t Available terbinafine HCl 250 mg tablet TK 1 T PO D 07/20 completed Not Available Not Available Not Available amoxicillin 875 mg tablet TAKE ONE TABLET BY MOUTH TWICE A DAY FOR 10 DAYS 04/26 completed Not Available Not Available Not Available cephalexin 500 mg capsule TAKE ONE CAPSULE BY MOUTH FOUR TIMES DAILY 03/21 completed Not Available Not Available Not Available nitrofurant oin macrocrysta l 100 mg capsule TAKE 1 CAPSULE BY MOUTH TWICE DAILY FOR 10 DAYS active Not Available Not Available No t Available promethazin e 25 mg tablet TK 1 T PO Q 6 H PRN 04/26 completed Not Available Not Available Not Available dextroamphe tamine-amph etamine 15 mg tablet TAKE 1 TABLET BY MOUTH TWICE DAILY active Not Available Not Available No t Available methylpredn isolone 4 mg tablets in a dose pack 08/11 completed Not Available Not Available Not Available albuterol sulfate HFA 90 mcg/actuati on aerosol inhaler INHALE 2 PUFFS BY MOUTH EVERY 4 HOURS NEEDED active Not Available Not Available No t Available spironolact one 50 mg tablet 08/11 completed Not Available Not Available Not Available amoxicillin 875 mg-potassiu m clavulanate 125 mg tablet TK 1 T PO BID FOR 10 DAYS 04/26 completed Not Available Not Available Not Available dextroamphe tamine-amph etamine ER 25 mg 24hr capsule,ext end release TAKE 1 CAPSULE BY MOUTH EVERY MORNING 10/24 completed Not Available Not Available Not Available Metadate CD 10 mg capsule,ext ended release Take 1 capsule every day by oral route. active Not Available Not Available No t Available bupropion HCl XL 300 mg 24 hr tablet, extended release Take 1 tablet every day by oral route in the morning for 30 days. 2024 active Not Available Not Available Not Avai lable bupropion HCl XL 150 mg 24 hr tablet, extended release TAKE 1 TABLET BY MOUTH EVERY DAY active Not Available Not Available No t Available nitrofurant oin monohydrate /macrocryst als 100 mg capsule TAKE 1 CAPSULE BY MOUTH EVERY 12 HOURS 11/26 completed Not Available Not Available Not Available Tri-Lo-Spri ntec 0.18 mg/0.215 mg/0.25 mg-0.025 mg tablet TK 1 T PO Q DAY 07/20 completed Not Available Not Available Not Available clindamycin 1 %-benzoyl peroxide 5 % topical gel with pump APPLY A THIN LAYER TOPICALLY TO THE AFFECTED AREA EVERY MORNING active Not Available Not Available No t Available ID NOW COVID-19 Test Kit TEST DIRECTED TODAY 03/21 completed Not Available Not Available Not Available Paxlovid 300 mg (150 mg x 2)-100 mg tablets in a dose pack TK 2 NIRMATREL VIR TS AND 1 RITONAVIR T TOGETHER PO BID FOR 5 DAYS TWICE DAILY FOR 5 DAYS 03/21 completed Not Available Not Available Not Available Paxlovid 150 mg-100 mg tablets in a dose pack (Renal Dose) Use as directed twice a day for 5 days 03/21 completed Not Available Not Available Not Available Vitals Date Recorded Body height Body mass index (BMI) Body weight Body temperature Heart rate Oxygen saturation Oxygen saturation in Arterial blood by Pulse oximetry Systolic blood pressure Diastolic blood pressure Provider Name and Address Organization Details Last Updated DateTime 3 170.18 cm 20 kg/m2 58979.8 2 g 98.4 [degF] 81 /min 99 % 99 % 122 mm[Hg] 76 mm[Hg] JAYDEN Morris [facility] [employer] [facility] 3 11:32:01 Date Recorded Body height Body mass index (BMI) Body weight Body temperature Heart rate Oxygen saturation Oxygen saturation in Arterial blood by Pulse oximetry Systolic blood pressure Diastolic blood pressure Provider Name and Address Organization Details Last Updated DateTime 3 170.18 cm 21.1 kg/m2 52246.9 7 g 97.9 [degF] 63 /min 98 % 98 % 112 mm[Hg] 80 mm[Hg] Nica Felipe MA [facility] [employer] [facility] 3 16:07:32 Date Recorded Body height Body mass index (BMI) Body weight Body temperature Heart rate Respiratory rate Oxygen saturation Oxygen saturation in Arterial blood by Pulse oximetry Systolic blood pressure Diastolic blood pressure Provider Name and Address Organization Details Last Updated DateTime 4 170.18 cm 24.7 kg/m2 82422.5 9 g 97.9 [degF] 73 /min 16 /min 98 % 98 % 100 mm[Hg] 62 mm[Hg] Candida Michaels RN [facility] [employer] [facility] 4 10:19:25 Date Recorded Body height Body mass index (BMI) Body weight Systolic blood pressure Diastolic blood pressure Provider Name and Address Organization Details Last Updated DateTime 08/17/2024 170.18 cm 22.4 kg/m2 05110.71 g 110 mm[Hg] 82 mm[Hg] Bethany Godfrey CNA [facility] [employer] [facility] 5 12:06:20 Date Recorded Body height Body mass index (BMI) Body weight Heart rate Oxygen saturation Oxygen saturation in Arterial blood by Pulse oximetry Respiratory rate Body temperature Systolic blood pressure Diastolic blood pressure Provider Name and Address Organization Details Last Updated DateTime 5 170.18 cm 22.4 kg/m2 84238.7 1 g 62 /min 98 % 98 % 12 /min 97.8 [degF] 110 mm[Hg] 80 mm[Hg] Amelia Matamoros [facility] [employer] [facility] 12:23:38 Social History None recorded. Functional Status None recorded. Mental Status None recorded. Family History Relationship Description Onset Age of this Age Resolved Age Notes LastModified by Organization Details LastModified Time Father No current problems or disability [email or web address] Not available 12:24:22 Mother No current problems or disability [email or web address] Not available 12:24:22 Medical History Condition Response BLINDNESS N KIDNEY STONES N BLADDER PROBLEMS N MRSA N OTHER # 1 N LUNG DISEASE/DISORDER N HISTORY OF DRUG ABUSE N RADIATION / CHEMOTHERAPY N COPD N Other # 2 N SHINGLES N DEPRESSION (INCLUDING POST ) N BOWEL PROBLEMS N FAILED BACK SYNDROME N STROKE/TIA N THYROID DISEASE N BENIGN PROSTATIC HYPERPLASIA N TB SKIN TEST N HYPOTENSION N PARAPELGIA N OBESITY N GERD/NAUSEA N ANEURYSM N URINARY/BLADDER/KIDNEY PROBLEMS N CORONARY ARTERY DISEASE (CAD) N Do you have Advance directive? N USE OF BLOOD THINNERS N PERIPHERAL ARTERY DISEASE N GASTROINTESTINAL BLEEDING N Do you have a living will? N BLOOD CLOTS N ASTHMA N Abdominal Pain N ARTERIAL INSUFFICIENCY N NEUROPATHY N AIDS/HIV N LIVER DISEASE N HYPERTENSION N TOURETTE'S N ANXIETY DISORDER N BLOOD TRANSFUSION N ANEMIA/BLOOD DISORDER N TUBERCULOSIS N GLAUCOMA N DIVERTICULITIS N SLEEP APNEA N BACK INJECTIONS N ALLERGIES/HAYFEVER N INSOMNIA N ESRD N HIGH CHOLESTEROL / HYPERLIPIDEMIA N PVD N EDEMA N CAROTID BLOCKAGE N BACK / NECK PROBLEMS N HAVE YOU BEEN HOSPITALIZED OR SEEN IN [facility] ER IN THE PAST YEAR ? N MIGRAINES N POLYCYSTIC OVARIES N HISTORY WITH COMPLICATIONS WITH ANESTHES IA ? N FIBROMYALGIA N OSTEOPOROSIS N ARTHRITIS N Do you have a healthcare POA? N NO SIGNIFICANT PAST MEDICAL HISTORY N APPENDICITIS N DIABETES, TYPE N VON WILLIBRAND'S DISEASE N HEARTBURN / REFLUX N POST LAMINECTOMY SYNDROME N HEPATITIS / LIVER DISEASE N PULMONARY DISEASE N GOUT N ALZHEIMER'S DISEASE N HERPES N DEMENTIA N SEIZURES/EPILEPSY N HEADACHES/MIGRAINES N VASCULAR DISEASE N PACEMAKER N Blood Disorder N DIZZINESS N KIDNEY DISEASE N HEART DISEASE/HEART PROBLEMS N MENTAL DISORDER/ILLNESS N NEUROPSYCHOLOGICAL N CARDIAC ARRHYTHMIA N CANCER: SPECIFY N ANESTHESIA COMPLICATIONS N Gall Stones N AUTOIMMUNE DISEASE N DEAF/HEARING IMPAIRED N Gynecological HistoryNo gynecological history recorded. Obstetrics History GPAL:G 0 P 0 0 0 0 Past Encounters Encounter ID Performer Location Encounter Start Date Encounter Closed Date Diagnosis/Indication Diagnosis SNOMED-CT Code Diagnosis ICD10 Code Diagnosis Note [id number] [facility] [place] [address] [place] [address] 03/01/2021 00:00:00 03/01/2021 17:02:25 [id number] [facility] [address] [place] [address] 09/26/2021 00:00:00 10/04/2021 10:37:08 [id number] [facility] [place] [place] [address] [facility] [place] [address] 11/26/2021 00:00:00 11/26/2021 10:51:46 [id number] [facility] [place] [place] [address] [facility] [place] [address] 03/21/2022 00:00:00 03/22/2022 06:28:44 [id number] [facility] [place] [address] [facility] [place] [address] 07/15/2022 00:00:00 07/16/2022 06:22:29 [id number] Mor Christian MD [facility] [place] [address] [facility] [place] [address] 10/24/2022 11:24:50 10/24/2022 11:55:18 Pain in pelvis 91875446 R10.2 Viral ente ritis of intestine 84282122 A08.4 SxRx plenty of fluids and Gatorade Watch for changes in BM. [id number] NEEMA Yanes [facility] [address] [facility] [place] [address] 06/16/2023 16:01:11 06/16/2023 16:21:09 Attention deficit hyperactivity disorder, predominantly inattentive type 29424338 F90.0 Screening for malignant neoplasm of cervix 849897602 Z12.4 [id number] NEEMA Yanes [facility] [address] [place] [address] 04/06/2024 10:03:50 04/06/2024 11:07:05 Adult health examination 618894512 Z00.00 Attention deficit hyperactivity disorder, predominantly inattentive type 88951072 F90.0 Mixed anxi ety and depressive disorder 528215535 F41.8 [id number] NEEMA Yanes [facility] [address] [place] [address] 08/17/2024 12:00:32 08/17/2024 12:23:42 Mixed anxiety and depressive disorder 572269236 F41.8 Lipoma 81687502 D17.9 Attention deficit hyperactivity disorder, predominantly inattentive type 02046837 F90.0 [id number] Romulo fletcher MD [facility] General Surgery [address] [facility] [address] [place] [address] 08/26/2024 12:17:49 09/27/2024 15:49:10 Lipoma of back 713396481 D17.1 Health Concerns Section Related Observation LastModified by Organization Detai ls LastModified Time None Recorded Concern Status LastModified by Organization Details LastModified Time None Recorded Advance Directives Directive None Recorded Payers Encounter Date Sequence Insurance Name Policy Number Policy Gomez Covered Member ID Gomez Member ID Guarantor Name 10/24/2022 1 [facility] Darci Olimpia [id number] Darci Leslie 06/16/2023 1 [facility] Darci Olimpia [id number] Darci Leslie 04/06/2024 1 [employer] Darci Leslie [id number] Darci Leslie 08/17/2024 1 [employer] Darci Leslie [id number] Darci Leslie 08/26/2024 1 [employer] Darci Leslie [id number] Darci Leslie Notes Date Note Type Note Provider Name and Address Organization Details Recorded Time 10/24/2022 text/html Here today c/o nausea. Last year took probiotics d/t abdominal distension. 2 weeks ago started with nausea. Last week had abdominal pain . Had diarrhea and black stools. Not taking pepto bismol. Eating makes it feel better sometimes and sometimes not. Alcohol makes it worse. Has RLQ pain and distended. She looks . No vomiting. Has suprapubic pain. Mor Christian MD [address], [address], [place], [address], [email or web address] [facility] [employer] 10/24/2022 13:23:45 06/16/2023 text/html here for f/u NEEMA Yanes [address], [address], [place], [address], [email or web address] [facility] [employer] 06/30/2023 14:57:04 04/06/2024 text/html OB Dalla Beth . , ondansetron swallow tabs, otc vitamins , . 7th month , 1 child 14 y/o girl , this one will be a boy . she has not taken Adderall since becoming . this baby is planned NEEMA Yanes [address], [place], [address], [employer] 04/27/2024 16:48:37 08/17/2024 text/html mass left lower back , non-tender. wants her bupropion increased NEEMA Yanes [address], [address], [place], [address], [employer] 08/21/2024 12:02:05 08/26/2024 text/html patient complain s of painful lump on her right lower back she has had for quite sometimes however now becoming tender to touch. Denies redness denies drainage denies any constitutional symptoms Romulo Bach MD [address], [address], [place], [address], [email or web address] [facility] [employer] 08/26/2024 14:39:34 OBGyn Episode No OBEpisode recorded.
[2024-10-16 14:59] VITALS: BP 105/65; PULSE 74; RESP 18; TEMP 37.6; O2SAT 100
--- NOTE | 2024-10-16 15:11 | ED_ITS ---
HPI - URI/Sore Throat General Chief Complaint: Upper Respiratory Infection Stated Complaint: fatigue, body aches Time Seen by Provider: 10/16/24 15:03 Source: patient and RN notes reviewed Mode of arrival: ambulatory Limitations: no limitations History of Present Illness HPI Narrative: Patient presents today complaining of a 3-4 day history of nasal congestion headache, fatigue, body aches. Denies cough, sore throat, ear pain. She has tried Tylenol and DayQuil with mild relief. Reports friend had bronchitis last week. Reports concern for pneumonia due to fatigue. Related Data Home Medications ?Medication ?Instructions ?Recorded ?Confirmed ?Last Taken ?Type bupropion HCl 150 mg 24 hr tablet, 150 mg PO DAILY 06/10/24 06/17/24 06/17/24 H istory extended release Allergies Allergy/AdvReac Type Severity Reaction Status Date / Time No Known Allergies Allergy Verified 10/16/24 15:04 Review of Systems Review of Systems: CONSTITUTIONAL: Denies fever, chills, or sweats.+ body aches, fatigue EYES: Denies visual changes, redness, or discharge. ENT: Denies rhinorrhea, sore throat, or otalgia.+ congestion CARDIOVASCULAR: Denies chest pain, palpitations, or edema. RESPIRATORY: Denies cough or dyspnea. GASTROINTESTINAL: Denies abdominal pain, nausea, vomiting, or diarrhea. GENITOURINARY: Denies dysuria or hematuria. SKIN: Denies rash, itching, or wounds. MUSCULOSKELETAL: Denies back pain, joint pain, or myalgia. NEUROLOGIC: Denies numbness, tingling, or weakness.+ headache PSYCH: Denies depression or anxiety. [facility] Family History Family History Other No pertinent family history Social History Social History Smoking status: Never smoker Second hand tobacco smoke exposure: No Alcohol intake: current Substance use: never Do You Feel Safe in your Home?: Yes Lack of Transportation: No Lack of Food: Never True Current Housing: I Have Housing Concerned About Future Housing: No Difficulty Paying Gas/Electric Bills: No Difficulty Paying for Meds: No Currently Unemployed: No Education: Trade/Vocational Certificate Difficulty w/ Childcare or Family Care: No Spiritual care concerns: No Comments At time of signature, I have reviewed and agree with nursing past medical, surgical, social and family history unless otherwise noted. Please see nursing chart for further information. There is no relevant family history pertinent to the presenting complaint Exam Narrative: GENERAL: Well-appearing, well-nourished, and in no acute distress. HEAD: Normocephalic, atraumatic. EYES: EOMI. No redness or drainage. Conjunctivae normal. ENT: Mucous membranes pink and moist. Nares clear. No rhinorrhea. TMs normal bilaterally. Throat normal. Uvula midline. NECK: Normal AROM. Supple. No lymphadenopathy. CHEST: No respiratory distress. Clear to auscultation. HEART: Regular rate and rhythm. No murmur appreciated. EXTREMITIES: Normal range of motion. No edema. SKIN: Warm, dry, no rash. Capillary refill normal. Normal skin turgor. NEURO: No focal deficits. Alert and oriented x3. Gait steady. PSYCH: Normal affect. No signs of depression or anxiety. Course Course Level of Care: Express Care Visit Vital Signs Vital signs: Vital Signs Temperature 99.6 F 10/16/24 14:59 Pulse Rate 74 10/16/24 14:59 Respiratory Rate 18 10/16/24 14:59 Blood Pressure 105/65 10/16/24 14:59 Pulse Oximetry 100 10/16/24 14:59 Oxygen Delivery Room Air 10/16/24 14:59 Temperature 99.6 F 10/16/24 14:59 Pulse Rate 74 10/16/24 14:59 Respiratory Rate 18 10/16/24 14:59 Blood Pressure 105/65 10/16/24 14:59 Pulse Oximetry 100 10/16/24 14:59 Oxygen Delivery Room Air 10/16/24 14:59 Reviewed MDM - URI/Sore Throat MDM Narrative Medical decision making narrative: Exam grossly normal. Offered COVID and influenza, and patient accepted. Influenza and COVID negative. Symptoms likely viral in etiology. Discussed [id number] medication use and duration of illness. No prescription medications indicated at this time. Anticipatory guidance given. Differential Diagnosis Differential diagnosis: Likely upper respiratory infection, viral infection, influenza and other (COVID-19) Lab Data Attestation: I reviewed the patient's lab results. Labs: Lab Results 10/16/24 Range/Units 15:27 POC Influenza A Ag Negative (Negative) POC Influenza B Ag Negative (Negative) POC SARS CoV-2 Ag Negative (Negative) Critical Care Time Critical Care Time Critical Care Time: No Discharge Plan Discharge Clinical Impression: Viral syndrome Patient Disposition: Home Condition: Stable Instructions: Viral Syndrome (ED) Additional Instructions: Your COVID and influenza swabs are negative today. Your symptoms are likely due to a viral illness, which is not treated with antibiotics. Virus symptoms can last for up to 7-10days. Take ibuprofen, Aleve, or Tylenol for pain or fever. Rest and stay hydrated. Follow up with your PCP in 7 days if symptoms are not improving. Go to the ER immediately if you develop new onset fever greater than 100.3, shortness of breath, difficulty swallowing, or any other concerning symptoms. Patient Language: Hungarian Prescriptions: No Action bupropion HCl 150 mg tablet extended release 24 hr 150 mg PO DAILY Follow-up/Referrals: Ryan,NEEMA Byrd [Primary Care Provider] - Time of Disposition: 15:31
[2024-10-16 15:29] LABS: EDCOVIDSCREEN Negative (Negative); EDINFLUASCREEN Negative (Negative); EDINFLUBSCREEN Negative (Negative)
== END 2024-10-16 15:32 | disposition home or self-care (01) ==
PROVIDERS: Emergency Provider Nurse Practitioner; PCP Physician Assistant
DX: B34.9 Viral infection, unspecified (principal); Z20.822 Contact with and (suspected) exposure to COVID-19
CPT/HCPCS: 87426; 87804; 99212; G0463

== ENCOUNTER 2025-05-19 07:48 | Outpatient (CLI) | payer OTHER, SELFPAY ==
--- OUTSIDE RECORDS SUMMARY | 2025-05-19 08:02 | XMS_ITS | Clinical Summary ---
Author Organization [facility] Address Count includes the [facility] [place] [address] Care Team Providers Care Integration Software Developer Name Role Phone Unavailable Primary Care Provider Unavailabl e Social History Tobacco Use Types Packs/Day Years Used Date Smoking Tobacco: Never Assessed Comments Unknown Sex and Gender Information Value Date Recorded Sex Assigned at Not on file Legal Sex Female 7:28 AM [employer]PER[employer] Gender Identity Not on file Sexual Orientation Not on file Plan of Treatment Health Maintenance Due Date Last Done Comments Cervical Cancer Screening Pa p Smear (Age 30 to 64) Every 3 Years 1989 Annual Physical 1992 Hepatitis C 2007 DTaP, Tdap and Td Vaccines ( 1 - Tdap) 2008 Hepatitis B Vaccines (1 of 3 - 19+ 3-dose series) 2008 HPV Vaccines (1 - 3-dose SCD M series) 2016 Cervical Cancer Screening Pa p with HPV Testing (Age 30 to 64) Every 5 Years 2019 Cervical Cancer Screening with HPV 2019 COVID-19 Vaccine (2024-2 6 season) 2025 Influenza Adult (#1) 2025 Hepatitis A Vaccines Aged Out No long er eligible based on patient's age to complete this topic Meningococcal B Vaccine Aged Out No l onger eligible based on patient's age to complete this topic Meningococcal Vaccine Aged Out No nilo jordan eligible based on patient's age to complete this topic Pneumococcal Vaccine: Pediat rics (0 to 5 Years) and At-Risk Patients (6 to 49 Years) Aged Out No longer eligible b ased on patient's age to complete this topic RSV Immunizations Under 20 Months Aged Out No longer eligible based on patient's age to complete this topic
--- OUTSIDE RECORDS SUMMARY | 2025-05-19 08:02 | XMS_ITS | Data Portability ---
Author Organization [place] [facility] [employer], Main Office Address [address] [place] [address] Assessment Encounter Date Assessment Date Assessment LastModified [...] Organization Details Last Modified Time Details Appointments None recorded. Lab None recorded. Referral general surgeon referral - lipoma left of lumbar spine . Please eval and treat. Please call patient to schedule an appointment . Thank you 2024 025 [email or web address] Romulo Mercado MD, [address] [facility], [facility] [address], [address], 5 08:46:05 gynecologis t referral 2022 023 [email or web address] Keysha Lindquist MD, [address] [facility], [address], [place], [address], 4 09:26:32 Procedures None recorded. Surgeries None recorded. Imaging None recorded. Medication Orders azithromyci n 250 mg tablet 2024 025 [id number], [address] [place], [place], [id number], 5 15:41:47 promethazin e-DM 6.25 mg-15 mg/5 mL oral syrup 2024 025 [facility] #48606, [address] [place], [place], [id number], 5 15:41:50 prednisone 20 mg tablet 2024 025 [facility] #88884, [address] [place] [address], [id number], 5 15:41:50 bupropion HCl XL 300 mg 24 hr tablet, extended release 2024 025 [facility] #45035, [address] [place], [place], [id number], 5 12:14:11 dextroamphe tamine-amph etamine 15 mg tablet 2022 023 [facility] #47712, [address] [place], [place], [id number], 3 16:15:39 Patient TargetsNo targets recorded. 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 Problems Name Problem SNOMED Code Status Onset Date Resolution Date Notes Provider Name and Address Organization Details Recorded Time Acne 41045799 Active Not Available [facility] 3 08:48:32 Undifferenti ated attention deficit disorder 17773489 Active Not Available [facility] 3 08:48:32 Tendinitis of wrist 541316038 Active Not Available [facility] 3 08:48:32 Adult attention deficit hyperactivit y disorder 205420105 Active Not Available [facility] 3 08:48:32 Urinary tract infectious disease 44467614 Active Not Available [facility] 3 08:48:32 Attention deficit hyperactivit y disorder, predominantl y inattentive type 53357346 Active 2022 Mor Christian MD [address], [place], [address] , [employer] 3 12:00:15 Pain in pelvis 04139718 Active 2022 Mor Christian MD [address], [place], [address] , [employer] 3 11:48:58 Viral enteritis of intestine 85829023 Active 2022 Mor Christian MD [address], [place], [address] , [facility] 3 13:21:44 Mixed anxiety and depressive disorder 435843188 Active 2022 Mor Christian MD [address], [place], [address] , [employer] 3 08:46:03 Bronchitis 23365338 Active 2022 Mor Christian MD [address], [place], [address] , [employer] 3 16:27:24 Screening for malignant neoplasm of cervix Active 2022 NEEMA Yanes [address], [address], [place], [address] , Mandae [facility] [employer] [facility] 3 16:16:16 Adult health examination Active 2023 NEEMA Yanes [address], [address], [place], [address] , [facility]ae [facility] [employer] [facility] 4 10:34:13 Dysuria 95010822 Active 2023 NEEMA Yanes [address], [address], [place], [address] , Mandae [facility] [employer] [facility] 4 16:16:48 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 Medical Equipment None Reported. Allergies No known drug allergies Medications Name Sig Start Date Stop Date Status Note LastModified by Organization Details LastModified Time cyclobenzap rine 10 mg tablet 08/11 completed Not Available Not Available Not Available amoxicillin 500 mg capsule TK ONE C PO TID TAT 09/05 completed Not Available Not Available Not Available promethazin e-DM 6.25 mg-15 mg/5 mL oral syrup TAKE 5 ML BY MOUTH EVERY 4 HOURS FOR 10 DAYS NEEDED active Not Available Not Available No t Available prednisone 10 mg tablet 4 tabs daily x 3 days 3 tabs daily x 3 days 2 tabs daily x 3 days 1 tab daily x 3 days then stop. active Not Available Not Available No t Available azithromyci n 250 mg tablet TAKE 2 TABLETS BY MOUTH FOR 1 DAY THEN TAKE 1 TABLET BY MOUTH DAILY FOR 4 DAYS active Not Available Not Available No t Available fluconazole 150 mg tablet TK 1 T PO FOR 1 DAY active Not Available Not Available No t Available hydrocodone 5 mg-acetamin ophen 325 mg tablet TK 1 OR 2 TS PO Q 6 H PRN P 09/05 completed Not Available Not Available Not Available ondansetron HCl 4 mg tablet TAKE 1 TABLET BY MOUTH EVERY 6 HOURS NEEDED FOR NAUSEA 11/04 completed Not Available Not Available Not Available prednisone 20 mg tablet Take 2 tabs PO twice daily for 2 days; 1 tab PO twice daily for 5 days; 1/2 tab PO twice daily for 2 days; 1/2 tab PO once for 1 day. TAKE 2ND DOSE EVERYDAY AT NOON-10 DAY COURSE active Not Available Not Available No t Available spironolact one 100 mg tablet TAKE 1 TABLET BY MOUTH EVERY DAY FOR ACNE 11/04 completed on hold for now Not Available Not [...] Not Available Not Available No t Available clindamycin 1 %-benzoyl peroxide 5 % topical gel APPLY A THIN LAYER TOPICALLY TO THE [...] MOUTH EVERY 6 HOURS NEEDED FOR PAIN 11/04 completed Not Available Not Available Not Available terbinafine HCl 250 mg tablet TK 1 T PO D 01/14 /2021 completed Not Available Not Available Not Available [...] BY MOUTH TWICE DAILY FOR 10 DAYS 11/04 completed Not Available Not Available Not Available promethazin e 25 mg tablet TK [...] 300 mg 24 hr tablet, extended release TAKE 1 TABLET BY MOUTH EVERY DAY IN THE MORNING active Not Available Not Available No t Available bupropion HCl XL 150 mg 24 hr tablet, extended release TAKE 1 TABLET BY MOUTH EVERY DAY 11/04 completed Not Available Not Available Not Available nitrofurant oin monohydrate /macrocryst als 100 [...] mg-100 mg tablets in a dose pack (Moderate Renal Dose) Use as directed twice a day for 5 days 03/21 completed Not Available Not Available Not Available Vitals Date Recorded Body height Body mass index (BMI) Body weight Systolic And Diastolic Provider Name and Address Organization Details Last Updated DateTime 08/17/2024 170.18 cm 22.4 kg/m2 90556.71 g 110/82 mm[Hg] Bethany Godfrey CNA [facility] [employer] [facility] 08/17/2024 12:06:20 Date Recorded Body height Body mass index (BMI) Body weight Heart rate Oxygen saturation Oxygen saturation in Arterial blood by Pulse oximetry Respiratory rate Body temperature Systolic And Diastolic Provider Name and Address Organization Details Last Updated DateTime 5 170.18 cm 22.4 kg/m2 92386.7 1 g 62 /min 98 % 98 % 12 /min 97.8 [degF] 110/80 mm[Hg] Amelia Matamoros [facility] [employer] [facility] 5 12:23:38 Date Recorded Body height Body mass index (BMI) Body weight Oxygen saturation Oxygen saturation in Arterial blood by Pulse oximetry Heart rate Systolic And Diastolic Provider Name and Address Organization Details Last Updated DateTime 5 170.18 cm 20.2 kg/m2 75337.4 2 g 96 % 96 % 83 /min 122/78 mm[Hg] Maribell Heller Cas [facility] [employer] [facility] 5 15:28:24 Date Recorded Body height Body mass index (BMI) Body weight Body temperature Heart rate Respiratory rate Oxygen saturation Oxygen saturation in Arterial blood by Pulse oximetry Systolic And Diastolic Provider Name and Address Organization Details Last Updated DateTime 4 170.18 cm 24.7 kg/m2 51137.5 9 g 97.9 [degF] 73 /min 16 /min 98 % 98 % 100/62 mm[Hg] Candida Michaels RN [place] [employer] [facility] [employer] 4 10:19:25 Date Recorded Body height Body mass index (BMI) Body weight Body temperature Heart rate Oxygen saturation Oxygen saturation in Arterial blood by Pulse oximetry Systolic And Diastolic Provider Name and Address Organization Details Last Updated DateTime 3 170.18 cm 21.1 kg/m2 92232.9 7 g 97.9 [degF] 63 /min 98 % 98 % 112/80 mm[Hg] Nica Felipe MA [employer] 3 16:07:32 Social History None recorded. Functional Status None recorded. Mental Status None recorded. Family History Relationship Description Onset Age of this Age Resolved Age Notes LastModified by Organization Details LastModified Time Father No current problems or disability Not available 12:24:22 Mother No current problems or disability [email or web address] Not available 12:24:22 Medical History Condition Response BLINDNESS N KIDNEY STONES N BLADDER PROBLEMS N MRSA N OTHER # 1 N LUNG DISEASE/DISORDER N HISTORY OF DRUG ABUSE N RADIATION / CHEMOTHERAPY N COPD N Other # 2 N SHINGLES N BOWEL PROBLEMS N DEPRESSION (INCLUDING POST ) N FAILED BACK SYNDROME N STROKE/TIA N [...] GLAUCOMA N DIVERTICULITIS N SLEEP APNEA N ALLERGIES/HAYFEVER N BACK INJECTIONS N ESRD N INSOMNIA N HIGH CHOLESTEROL / HYPERLIPIDEMIA N PVD N EDEMA N CAROTID BLOCKAGE N BACK / NECK PROBLEMS N HAVE YOU BEEN HOSPITALIZED OR SEEN IN [facility] ER IN THE PAST YEAR ? N MIGRAINES N POLYCYSTIC OVARIES N HISTORY WITH COMPLICATIONS WITH ANESTHES IA ? N FIBROMYALGIA N OSTEOPOROSIS N ARTHRITIS N Do you have a healthcare POA? N NO SIGNIFICANT PAST MEDICAL HISTORY N APPENDICITIS N DIABETES, TYPE N VON WILLIBRAND'S DISEASE N HEARTBURN / REFLUX N HEPATITIS / LIVER DISEASE N POST LAMINECTOMY SYNDROME N PULMONARY DISEASE N GOUT N ALZHEIMER'S DISEASE N DEMENTIA N HERPES N HEADACHES/MIGRAINES N SEIZURES/EPILEPSY N VASCULAR DISEASE N PACEMAKER N Blood Disorder N DIZZINESS N HEART DISEASE/HEART PROBLEMS N KIDNEY DISEASE N MENTAL DISORDER/ILLNESS N NEUROPSYCHOLOGICAL N CANCER: SPECIFY N CARDIAC ARRHYTHMIA N ANESTHESIA COMPLICATIONS N Gall Stones N AUTOIMMUNE DISEASE N DEAF/HEARING IMPAIRED N Gynecological HistoryNo gynecological history recorded. Obstetrics History GPAL:G 0 P 0 0 0 0 Past Encounters Encounter ID Performer Location Encounter Start Date Encounter Closed Date Diagnosis/Indication Diagnosis SNOMED-CT Code Diagnosis ICD10 Code Diagnosis IMO Codes Diagnosis Note [id number] Mor Christian MD [facility] [place] [facility] [place] [address] 03/01/2021 00:00:00 03/01/2021 17:02:25 [id number] Mor Christian MD [facility] [place] [facility] [place] [address] 09/26/2021 00:00:00 10/04/2021 10:37:08 [id number] Mor Christian MD [facility] [place] [address] [place] [address] [place] [address] 11/26/2021 00:00:00 11/26/2021 10:51:46 [id number] Mor Christian MD [facility] [place] [facility] [place] [address] 03/21/2022 00:00:00 03/22/2022 06:28:44 [id number] Mor Christian MD [facility] [place] [address] [place] [address] [place] [address] 07/15/2022 00:00:00 07/16/2022 06:22:29 [id number] Mor Christian MD [facility] [place] [address] [place] [address] 10/24/2022 11:24:50 10/24/2022 11:55:18 Pain in pelvis 73511497 R10.2 Viral ente ritis of intestine 26722174 A08.4 SxRx plenty of fluids and Gatorade Watch for changes in BM. [id number] Mor Christian MD [facility] [place] [address] [facility] [place] [address] 06/16/2023 16:01:11 06/16/2023 16:21:09 Attention deficit hyperactivity disorder, predominantly inattentive type 45127545 F90.0 Screening for malignant neoplasm of cervix 012744066 Z12.4 [id number] Jairo Moreau MD [facility] [place] [address] [facility] [place] [address] 04/06/2024 10:03:50 04/06/2024 11:07:05 Adult health examination 827379868 Z00.00 Attention deficit hyperactivity disorder, predominantly inattentive type 66889754 F90.0 Mixed anxi ety and depressive disorder 688770810 F41.8 [id number] Jairo Moreau MD [address] [address] 08/17/2024 12:00:32 08/17/2024 12:23:42 Mixed anxiety and depressive disorder 435659494 F41.8 Lipoma 85394737 D17.9 Attention deficit hyperactivity disorder, predominantly inattentive type 55581086 F90.0 [id number] Romulo fletcher MD [facility] General Surgery [address] [facility], [facility] [address] [place] [address] 08/26/2024 12:17:49 09/27/2024 15:49:10 Lipoma of back 530370742 D17.1 [id number] Jairo Moreau MD [address] [address] 11/04/2024 15:16:39 11/04/2024 15:56:15 Bronchitis 91789131 J40 Health Concerns Section Related Observation LastModified by Organization Detai ls LastModified Time None Recorded Concern Status LastModified by Organization Details LastModified Time None Recorded Advance Directives Directive None Recorded Payers Insurance Date Sequence Insurance Name Policy Number Policy Gomez Covered Member ID Gomez Member ID Guarantor Name 08/26/2024 1 [employer] Darci Olimpia [id number] Darci Leslie 08/26/2024 1 [employer] Darci Leslie [id number] Darci Leslie 08/26/2024 2 [employer] (POS) Darci Leslie [id number] Darci Leslie 02/22/2025 1 [employer] Darci Leslie [id number] Darci Leslie Notes Date Note Type Note Provider Name and Address Organization Details Recorded Time 06/16/2023 text/html ROS as noted in the HPI here for f/u NEEMA Yanes [address], [place], [address], [employer] 06/30/2023 14:57:04 04/06/2024 text/html ROS as noted in the HPI OB Mary Campos . , ondansetron swallow tabs, otc vitamins , . 7th month , 1 child 14 y/o girl , this one will be a boy . she has not taken Adderall since becoming . this baby is planned NEEMA Yanes [address], [place], [address], [employer] 04/27/2024 16:48:37 08/17/2024 text/html ROS as noted in the HPI mass left lower back , non-tender. wants her bupropion increased NEEMA Yanes [address], [place], [address], [employer] 08/21/2024 12:02:05 08/26/2024 text/html patient complains of painful lump on her right lower back she has had for quite sometimes however now becoming tender to touch. Denies redness denies drainage denies any constitutional symptoms Romulo Vonderlancken, MD [address], [facility] [address], [place], [address], Mandae [facility] [employer] [facility] 08/26/2024 14:39:34 11/04/2024 text/html ROS as noted in the HPI 3 weeks , no fever , productive cough , nasal congestion , headache, won't go awat NEEMA Yanes [address], [facility] [address], [place], [address], [employer] [facility] 11/10/2024 10:34:35 OBGyn Episode No OBEpisode recorded.
== END 2025-05-19 07:49 | disposition home or self-care (01) ==
PROVIDERS: PCP Physician Assistant; Visit Provider Obstetrics & Gynecology
DX: R10.20 Pelvic and perineal pain unspecified side (principal); Z01.818 Encounter for other preprocedural examination
CPT/HCPCS: 36415; 86850; 86880; 86900; 86901; 86902; 86922

== ENCOUNTER 2025-05-20 00:54 | Day surgery (SDC) | payer OTHER, SELFPAY ==
[2025-05-12 10:01] VITALS: BMI 19.1
--- NOTE | 2025-05-12 10:09 | PC.NURSE ---
[facility] has started construction of its new state of the art ER which will open Spring 2026. With this, we anticipate parking may be a challenge for some our surgical patients and families. Parking spaces are limited but are available for all Surgical, obstetrics, and ER patients sharing this lot. If you arrive and find you are having a hard time finding a parking space, please note that we understand the challenges, please drive around the hospital and park near Hospital Entrance 1. When you enter this entrance, you can ask a volunteer to direct or take you back to the surgical waiting area to check in. We appreciate everyone?s understanding of these expected challenges while we build for your future. Report to the Outpatient Waiting Room, entrance under the green pavilion located off [address], at time _0630_ on date _[id number]_. Planned Procedure Time: _0830_.? Time changes happen often and if your time is changed the preop area will call you the afternoon before. - You and your visitor will be asked to self-screen and do not enter if you have any COVID symptoms. Please call surgeon if you need to reschedule. - A mask is optional within the hospital at this time. Patients may have clear liquids (water, carbonated beverages, clear teas, apple juice) until 3 hours prior to surgery with a maximum of 20 ounces. - No food from midnight until time of surgery and no smoking, or chewing tobacco (or any form of nicotine). No chewing gum, candy or mints. Take only the following medications with a SIP of water on the morning of surgery: __Bupropion____ DO NOT STOP ANY OF YOUR OTHER PRESCRIPTION MEDICATIONS PRIOR TO SURGERY EXCEPT THE FOLLOWING Hold all vitamins and supplements for 3 days per anesthesiologist. Medications to discontinue per physician Date to take last dose Please no make-up, nail lithuanian, hairspray, perfume, deodorant, or body powder the day of surgery.? No jewelry (including any body piercings) or valuables the day of surgery, leave them at home.? Please take a shower or bath the night before, or the morning of, surgery with an antibacterial soap.? Wear comfortable, loose fitting clothing.? - Jewelry must be removed prior to entering the operating room.? Rings and piercings that are not removed may be cut off. - The hospital will not accept responsibility for valuables.? - Please leave all valuables, including medications, at home the day of surgery. If you are going home after surgery, a licensed motor driver must drive you home.? - NO public transportation without another adult if you receive anesthesia. - We recommend that an adult stay with you for 24 hours following discharge. - We also recommend that you do not drive, make important decision, drink alcoholic beverages, or take any drugs that were not prescribed by your health care provider for at least 24 hours after your discharge time. Follow any additional instructions given to you from your surgeon. Telephone instructions given to __Darci___and asked if any additional questions and then verbalized understanding. Patient advised to call surgeon office or pre surgery nurse liaison [phone] if any additional questions.
--- NOTE | 2025-05-17 06:56 | PM.IMHP ---
H&P: HPI History of Present Illness Date/Time: 05/17/25 06:56 Chief Complaint: Pelvic pain dyspareunia Narrative: This is a 35 year 2 para 2 admitted for laparoscopy cauterization endometriosis secondary to pelvic pain suspected endometriosis risks and benefits reviewed including exclusive , aspiration pneumonia, bleeding, transfusion perforation injury to bowel, bladder ureters or organs with need for laparotomy. She received the [facility] laparoscopy. She had all questions answered. She asked to proceed Review of Systems Review of Systems: CONSTITUTIONAL: Denies fever, chills, or sweats.+ body aches, fatigue EYES: Denies visual changes, redness, or discharge. ENT: Denies rhinorrhea, sore throat, or otalgia.+ congestion CARDIOVASCULAR: Denies chest pain, palpitations, or edema. RESPIRATORY: Denies cough or dyspnea. GASTROINTESTINAL: Denies abdominal pain, nausea, vomiting, or diarrhea. GENITOURINARY: Denies dysuria or hematuria. SKIN: Denies rash, itching, or wounds. MUSCULOSKELETAL: Denies back pain, joint pain, or myalgia. NEUROLOGIC: Denies numbness, tingling, or weakness.+ headache PSYCH: Denies depression or anxiety. [facility] Family History Family History Other No pertinent family history Social History Social History Second hand tobacco smoke exposure: No Alcohol intake: current Drinks per week: 4 Substance use: never Do You Feel Safe in your Home?: Yes Lack of Transportation: No Lack of Food: Never True Current Housing: I Have Housing Concerned About Future Housing: No Difficulty Paying Gas/Electric Bills: No Difficulty Paying for Meds: No Currently Unemployed: No Education: Trade/Vocational Certificate Difficulty w/ Childcare or Family Care: No Living arrangements: with family Spiritual care concerns: No Meds Home Medications and Allergies Home Medications ?Medication ?Instructions ?Recorded ?Confirmed ?Type bupropion HCl 150 mg 24 hr tablet, 150 mg PO DAILY 06/10/24 05/12/25 History extended release dextroamphetamine-amphetamine 15 15 mg PO DAILY 05/12/25 05/12/25 History mg tablet Allergies Allergy/AdvReac Type Severity Reaction Status Date / Time No Known Allergies Allergy Verified 05/12/25 10:00 Exam Const: General: cooperative, healthy appearing and comfortable Nutritional Appearance: average body habitus Orientation/consciousness: oriented to person, oriented to place and oriented to time HENMT: Head: normal to inspection Resp: Effort & Inspection: normal respiratory effort Cardio: Rate: regular rate Rhythm: regular rhythm Heart sounds: S1 normal heart sound present and S2 normal heart sound present GI: Inspection: normal to inspection : External Female Exam: normal external appearance Speculum Exam - Vagina: normal appearance of the vagina Speculum Exam - Cervix: normal appearance of the cervix Bimanual exam- vagina & uterus: Uterine tenderness Bimanual Exam- Adnexa, other: tender bilaterally Assessment and Plan Assessment and plan (1) Pelvic pain: Code(s): R10.20 - Pelvic and perineal pain unspecified side Status: Acute (2) Dyspareunia: Status: Acute Plan Proceed with diagnostic laparoscopy and destruction of endometriosis
--- NOTE | 2025-05-20 06:34 | WPDHPUPDATE1 ---
History and Physical Update Update Date/Time: 05/20/25 06:34 History and Physical has been reviewed, including an updated exam of the patient. There are NO changes in the patient's condition. Risks, benefits, and alternatives have been discussed and questions answered. Patient agrees to proceed with procedure.
[2025-05-20 06:35] VITALS: BP 98/63; PULSE 61; RESP 16; TEMP 37.1; O2SAT 100
--- NOTE | 2025-05-20 06:35 | WPDHPUPDATE1 ---
History and Physical Update Update Date/Time: 05/20/25 06:35 History and Physical has been reviewed, including an updated exam of the patient. There are NO changes in the patient's condition. Risks, benefits, and alternatives have been discussed and questions answered. Patient agrees to proceed with procedure.
[2025-05-20 06:48] LABS: BEDSIDEPREGUCG Negative (Negative)
[2025-05-20] MEDS: ACETAMINOPHEN 500 MG TABLET 1000 MG PO (07:01)
[2025-05-20] MEDS: LACTATED RINGERS 1,000 ML 30 ML IV CONT (07:05)
[2025-05-20] MEDS: KETOROLAC 15 MG/ML VIAL (*BKC) IV PUSH (07:14)
[2025-05-20] MEDS: SCOPOLAMINE 1 MG PATCH 1 PATCH TRANSDERM (07:14)
--- NOTE | 2025-05-20 07:35 | WPDANESEPPF ---
Anes - Initial Pre Proc Eval Procedure: Operation Date: 05/20/25 08:30 Proposed Procedures p Diagnostic Laparoscopy, Cautery of Endometriosis - Andrew Campos MD Date/Time: 05/20/25 07:35 Surgeon: Andrew Campos MD Pre Op Diagnosis: pelvic pain,dyspurenia,dysmenorrhea,endometriosis Patient Data Age: 35 Gender: F Height: 1.7 m Weight: 57.4 kg Last Vital Signs Temp 37.1 C 05/20/25 06:35 Pulse 61 05/20/25 06:35 Resp 16 05/20/25 06:35 BP 98/63 L 05/20/25 06:35 Pulse Ox 100 05/20/25 06:35 O2 Del Method Room Air 05/20/25 06:35 Allergies Allergy/AdvReac Type Severity Reaction Status Date / Time No Known Allergies Allergy Verified 05/20/25 06:44 Home Medications ?Medication ?Instructions ?Recorded ?Confirmed ?Type bupropion HCl 150 mg 24 hr tablet, 150 mg PO DAILY 06/10/24 05/20/25 History extended release dextroamphetamine-amphetamine 15 15 mg PO DAILY 05/12/25 05/20/25 History mg tablet hydrocodone 5 mg-acetaminophen 325 1 tablet PO Q4H PRN pain #20 tabs 05/20/25 Rx mg tablet Laboratory Tests 05/20/25 06:46 POC Urine HCG, Qual Negative (Negative) Patient hx anesthesia problems: none Family hx anesthesia problems: none Results Review: All pre-operative results and documents have been reviewed as part of the pre-operative evaluation. [facility] Family History Family History Other No pertinent family history Social History Social History Smoking status: Never smoker Second hand tobacco smoke exposure: No Alcohol intake: current Drinks per week: 4 Substance use: never Do You Feel Safe in your Home?: Yes Lack of Transportation: No Lack of Food: Never True Current Housing: I Have Housing Concerned About Future Housing: No Difficulty Paying Gas/Electric Bills: No Difficulty Paying for Meds: No Currently Unemployed: No Education: Trade/Vocational Certificate Difficulty w/ Childcare or Family Care: No Living arrangements: with family Spiritual care concerns: No Anes - Eval Final PreProcedure Day of Procedure 05/20/25 07:35 Patient weight: thin Heart: regular rate and rhythm Lungs: clear to auscultation Airway: Mallampati scale class II Neurological: alert and oriented Last oral intake: >/= 8 hours ASA classification: II Emergent: no Anesthetic plan: proceed Anesthesia type and monitoring: general ETT and standard monitoring Results Review: All pre-operative results and documents have been reviewed as part of the pre-operative evaluation. Informed Consent: The patient's anesthetic plan and its attendant risks and benefits were discussed with the patient/family/POA. Questions were solicited and answers provided to the satisfaction of the patient/family/POA.
--- NOTE | 2025-05-20 08:39 | P.OP_ITS ---
Procedure Note - Detailed Date of Procedure 05/20/25 Pre-op Diagnosis pelvic pain,dyspurenia,dysmenorrhea,endometriosis Post-op Diagnosis Same Procedure Performed Laparoscopy with destruction of endometriosis and destruction bilateral ovarian cysts Surgeon Andrew Campos MD Anesthesia General Indications 35-year-old female with pelvic pain dyspareunia Findings Uterus appeared to have a fibroid in the posterior portion of the fundus. Bilateral simple ovarian cyst. Endometrial implants in the form of blisters along each uterosacral ligament. Description of Procedure Patient was prepped and draped in normal sterile fashion placed in the dorsal lithotomy position. Under excellent general trach anesthesia weighted speculum placed in posterior fornix vagina. Anterior lip of cervix grasped with single- tooth Champagne's cannula inserted attached to the single-tooth to be used later for uterine manipulation. After emptying the bladder clear urine the weighted speculum was removed. The gloves were changed And infraumbilical incision made the Veress needle passed in the abdomen. Abdomen filled with CO2 gas [id number] 5mm trocar advanced under direct visualization with the Optiview and no injury seen. Patient placed in Trendelenburg and a suprapubic incision made. The 5mm trocar advanced under direct visualization assuring multiple cysts were seen bilaterally on the ovaries and small powder burn and endometriosis areas with blisters were seen along each uterosacral these were support point cauterized at 35 w per 2nd with monopolar cautery. Irrigation was undertaken the cysts were drained and clear fluid noted. The uterus was floppy and had a small fibroid posteriorly. The appendix and gallbladder and liver edge all appeared within normal limits and photo documentation undertaken. Irrigation undertaken until the pelvis was clear lower site removed. The gas removed from the abdomen. The upper site removed the incision closed with 4 Monocryl glue instruments withdrawn from the vagina. The patient was were awakened went to recovery in satisfactory condition. All sponge, needle, instrument counts were correct. There were no immediate complications Estimated Blood Loss 5 Drains No Packing No Pathology None sent Complications No immediate complications Condition Stable Disposition PACU
[2025-05-20 08:46] VITALS: BP 126/82; PULSE 76; RESP 20; TEMP 36.3; O2SAT 100
[2025-05-20] MEDS: fentaNYL CITRATE INJ (*CRX) 100 MCG/2 ML VIAL 25 MCG IV PUSH (09:10)
[2025-05-20 09:15] VITALS: BP 103/60; PULSE 53; RESP 16; O2SAT 100
[2025-05-20 09:30] VITALS: BP 104/66; PULSE 59; RESP 16; O2SAT 100
[2025-05-20 09:46] VITALS: BP 82/69; PULSE 67
[2025-05-20] MEDS: oxyCODONE HCL (*CRX) 5 MG TAB IR PO (09:58)
[2025-05-20 10:15] VITALS: BP 102/61; PULSE 52
== END 2025-05-20 10:23 | disposition home or self-care (01) ==
PROVIDERS: PCP Physician Assistant; Visit Provider Obstetrics & Gynecology
PROC: (CPT 49320; principal; 2025-05-20 08:30)
DX: N80.3C3 Endometriosis of bilateral uterosacral ligament(s), unspecified depth (principal); N83.292 Other ovarian cyst, left side; N83.291 Other ovarian cyst, right side; D25.9 Leiomyoma of uterus, unspecified; N94.6 Dysmenorrhea, unspecified; N94.10 Unspecified dyspareunia; R10.20 Pelvic and perineal pain unspecified side
CPT/HCPCS: 58662; 36415; 86850; 86880; 86900; 86901; 86922; A9270; J1100; J1885; J2003; J2250; J2405; J2704; J3010; J7120